=== PATIENT | male | born 1955 | race Caucasian/White ===

== ENCOUNTER → 2021-10-11 | Day surgery (SDC) | payer MEDICARE ==
[~2021-10-11] VITALS: Ht 175.3 cm; Wt 68.0 kg
[~2021-10-11] MED LIST: ASMANEX220 MC1 INH; NORVASC5 MG PO; SYNTHROID25 MCG PO; TENORMIN50 MG PO; VENTOLIN HFA IN18 GM INH
== END | disposition home or self-care (01) ==
LOC: FAS 10:50
DX: Z12.11 Encounter for screening for malignant neoplasm of colon (principal); K57.30 Diverticulosis of large intestine without perforation or abscess without bleeding; Z86.010 Personal history of colon polyps; Z87.891 Personal history of nicotine dependence
CPT/HCPCS: J2704; J7120